=== PATIENT | female | born 1955 | race Caucasian/White ===

== ENCOUNTER → 2019-11-29 10:38 | Outpatient (CLI) | payer MEDICARE, SELFPAY ==
--- NOTE | ~2019-11-29 | MR_ITS ---
EXAMINATION: MR thoracic spine wo con EXAM DATE: 11/29/2019 11:19 INDICATION: Left leg weakness. Right arm burning. Thoracic myelopathy. TECHNIQUE: Multi-sequential, multiplanar MR images of the thoracic spine were obtained without contra st. Sagittal T1, T2, T2 fat saturation, axial T2 weighted images reviewed. There is no prior study for comparison. FINDINGS: There are scattered focal signal abnormalities consistent with hemangiomata, otherwise with out focal suspicious marrow signal abnormalities. There is cervical fusion hardware. No scoliosis. Mi ld mid thoracic disc disease. The vertebral body and disc heights are otherwise well maintained. The vertebral bodies are aligned in the AP dimension. Thoracic central canal and neural foramen are widel y patent. Paraspinal soft tissue is unremarkable. Mild thoracic facet arthropathy. The spinal cord si gnal intensity and intrinsic morphology is normal. IMPRESSION: Mild thoracic spondylosis. Reviewed, dictated and finalized at location A. DATION MANAGER IMPRESSION: Mild thoracic spondylosis.
== END ==
PROVIDERS: PCP Internal Medicine
DX: R29.898 Other symptoms and signs involving the musculoskeletal system (principal); M47.14 Other spondylosis with myelopathy, thoracic region
CPT/HCPCS: 72146

== ENCOUNTER → 2020-01-08 12:55 | Outpatient (CLI) | payer MEDICARE, SELFPAY ==
--- NOTE | ~2020-01-08 | MR_ITS ---
EXAMINATION: MR brain/brain stem wo/w con EXAM DATE: 01/08/2020 13:59 INDICATION: Multiple sclerosis. Left leg weakness, paresthesia. TECHNIQUE: Magnetic resonance imaging (MRI) of the brain/brain stem obtained without contrast. Sagit melita T1, axial diffusion, gradient echo (T2*), T1, T2, FLAIR sequences obtained. Patient was then inj ected with 14 cc intravenous Multihance contrast. Axial and coronal postcontrast T1 weighted sequence s obtained. Comparison is made to prior examination from 06/07/2005. FINDINGS: Again there are multiple periventricular, subcortical T2/FLAIR signal hyperintensities, wit h mild interval progression compared to previous examination, some involving the margins of the corpu s callosum consistent with provided diagnosis of multiple sclerosis. No enhancing lesions to suggest active disease. There has been development of mild microangiopathy, the more confluent hyperintensity along the ventricles. No posterior fossa signal abnormalities. There are no areas of restricted diffusion to suggest acute infarction. There is no acute hemorrhage seen on the T2*, a hemosiderin sensitive sequence. No intraparenchymal brain mass. The ventricles a re normal in size. There are no extra-axial collections. Flow voids are seen in the cerebral arteri es on the T2-weighted sequences consistent with their expected patency. The orbits are unremarkable. Soft tissue is unremarkable. There are no areas of abnormal enhancement on the postcontrast image s. IMPRESSION: Mild interval increase in scattered white matter lesions also involving corpus callosum, consistent with multiple sclerosis. No enhancing, active plaques. Reviewed, dictated and finalized at location A. IMPRESSION: Mild interval increase in scattered white matter lesions also invol ving corpus callosum, consistent with multiple sclerosis. No enhancing, active plaques.
[2020-01-08 13:26] LABS: Estimated Glomerular Filt Rate > 60
== END ==
DX: G35 Multiple sclerosis (principal)
CPT/HCPCS: 36415; 70553; A9577

== ENCOUNTER 2021-04-23 16:36 | Outpatient (CLI) | payer MEDICARE, SELFPAY ==
--- NOTE | ~2021-04-23 | MM_ITS ---
EXAMINATION: MM screening nereyda BI w eda HISTORY: Screening TECHNIQUE: Craniocaudal and mediolateral oblique 3-D tomosynthesis images were obtained and synthetic 2-D images were generated. CAD analysis was submitted and interpreted. COMPARISON: Comparison to multiple prior studies sequentially, with oldest reviewed study dated 02/2013. BREAST PARENCHYMAL COMPOSITION: There are scattered areas of fibroglandular density. FINDINGS: The left breast is stable without evidence for malignancy. No other asymmetries in the lowe r inner quadrant of the right breast. IMPRESSION: 1. Developing right breast asymmetries. 2. Additional spot compression and mediolateral views with possible follow-up breast ultrasound recom mended. BI-RADS Category 0: Incomplete: Needs additional imaging evaluation. Reviewed, dictated and finalized at location A. IMPRESSION: 1. Developing right breast asymmetries. 2. Additional spot compression and mediolateral views with possible follow-up b reast ultrasound recommended. BI-RADS Category 0: Incomplete: Needs additional imaging evaluation.
== END 2021-04-23 16:37 | disposition home or self-care (01) ==
LOC: ANHIMG 16:40
PROVIDERS: PCP Internal Medicine; Visit Provider Internal Medicine
DX: Z12.31 Encounter for screening mammogram for malignant neoplasm of breast (principal); R92.8 Other abnormal and inconclusive findings on diagnostic imaging of breast
CPT/HCPCS: 77063; 77067

== ENCOUNTER 2021-04-29 10:28 | Outpatient (CLI) | payer MEDICARE, SELFPAY ==
--- NOTE | ~2021-04-29 | CT_ITS ---
EXAMINATION: CT abdomen pelvis w con DATE: 04/29/2021 11:24 INDICATION: Constipation for 3 months. TECHNIQUE: Computed tomography (CT) of the abdomen and pelvis was performed with 100 cc Omnipaque 350 intravenous contrast. The dose-length product was 805.81 mGy-cm. Automated exposure control and iter ative reconstruction technique were employed. COMPARISON: CT dated 06/10/2005 FINDINGS: Bibasilar atelectasis. Heart size normal. No significant pleural or pericardial effusion. S tatus post cholecystectomy. There is a 2.5 cm cyst of the spleen. The pancreas, adrenal glands and ri ght kidney are unremarkable. There is a punctate 3 mm nonobstructing left renal stone. There is a sma ll fat-containing umbilical hernia. Nonobstructive bowel gas pattern. There is diffuse atherosclerosi s of the aorta without aneurysm. Status post hysterectomy. Moderate lumbar spondylosis. There is oste oarthritis of the hips. No focal lytic or blastic lesions. No free air or free fluid. IMPRESSION: 1. No acute abdominal abnormality. 2: Nonobstructing left nephrolithiasis. 3: Splenic cyst measuring 2.5 cm maximum axial dimension, likely developmental or posttraumatic. Reviewed, dictated and finalized at location A.
[2021-04-29 11:24] LABS: Estimated Glomerular Filt Rate > 60
== END 2021-04-29 10:29 | disposition home or self-care (01) ==
PROVIDERS: PCP Internal Medicine; Visit Provider Physician Assistant
DX: K59.00 Constipation, unspecified (principal); N20.0 Calculus of kidney; D73.4 Cyst of spleen
CPT/HCPCS: 74177; Q9967

== ENCOUNTER 2021-05-20 11:33 | Outpatient (CLI) | payer MEDICARE, SELFPAY ==
--- NOTE | ~2021-05-20 | MMUS_ITS ---
EXAMINATION: MM diagnostic nereyda RT w eda, US breast RT complete HISTORY: Developing right breast mammographic asymmetries reported on 04/23/2021 bilateral digital scre ening mammogram TECHNIQUE: Additional 3-D tomosynthesis images of the right breast were performed and synthetic 2-D i mages were generated. CAD analysis was submitted and interpreted. High resolution complete right ranjit st ultrasound was performed. COMPARISON: 04/23/2021 bilateral digital screening mammogram FINDINGS: MAMMOGRAPHIC FINDINGS: There is mildly nodular appearing fibroglandular stroma. Up to approximately 4 mm circumscribed low-density opacities are identified (craniocaudal Tomosynthes is spot image 25/68). Complete right breast ultrasound examination was performed for correlation. Otherwise no suspicious mass or architectural distortion or any malignant calcification, skin thicken ing or retraction is evident. ULTRASOUND: 2:00 3 cm from nipple: 6.6 x 2.9 x 4.8 mm sonolucency consistent with simple cyst 11:00 2 cm from nipple: Parallel circumscribed 1.3 x 4.5 mm cyst No suspicious mass or shadowing is detected. IMPRESSION: 1. No mammographic evidence of likely 2. Routine annual mammographic screening is recommended BI-RADS Category 2: Benign finding(s). Reviewed, dictated and finalized at location A. IMPRESSION: 1. No mammographic evidence of likely 2. Routine annual mammographic screening is recommended BI-RADS Category 2: Benign finding(s).
== END 2021-05-20 11:34 | disposition home or self-care (01) ==
LOC: ANHIMG 11:34
PROVIDERS: PCP Internal Medicine; Visit Provider Internal Medicine
DX: R92.8 Other abnormal and inconclusive findings on diagnostic imaging of breast (principal)
CPT/HCPCS: 76641; 77061; 77065; G0279

== ENCOUNTER 2021-05-25 02:02 | Day surgery (SDC) | payer MEDICARE, SELFPAY ==
[2021-05-07 14:30] VITALS: BMI 29.2
[2021-05-25 07:42] VITALS: BP 142/69; PULSE 89; RESP 18; TEMP 36.2; O2SAT 97
[2021-05-25] MEDS: LACTATED RINGERS 1,000 ML 150 ML IV CONT (07:46)
--- NOTE | 2021-05-25 07:49 | WPDANESEPPF ---
Anes - Initial Pre Proc Eval Procedure: Operation Date: 05/25/21 08:45 Proposed Procedures p Colonoscopy - Tucker Campa MD Date/Time: 05/25/21 07:49 Surgeon: Tucker Campa MD Pre Op Diagnosis: change in bowel habits Patient Data Age: 65 Gender: F Height: 1.68 m Weight: 82.7 kg Last Vital Signs Temp 36.2 C L 05/25/21 07:42 Pulse 89 05/25/21 07:42 Resp 18 05/25/21 07:42 BP 142/69 H 05/25/21 07:42 Pulse Ox 97 05/25/21 07:42 Allergies Allergy/AdvReac Type Severity Reaction Status Date / Time codeine Allergy Severe breathing Verified 05/25/21 07:40 problems Influenza Virus Vaccines Allergy Severe breathing Verified 05/25/21 07:40 problems morphine Allergy Severe slowing Verified 05/25/21 07:40 organs down Penicillins Allergy Severe breathing Verified 05/25/21 07:40 difficulty, rash Home Medications Medication Instructions Recorded Confirmed Type acetaminophen 325 mg tablet 325 mg PO Q4H PRN tablet 08/27/19 05/07/21 History cyanocobalamin (vitamin B-12) 1,000 mcg PO DAILY 08/27/19 05/07/21 History 1,000 mcg tablet citalopram 10 mg tablet 10 mg PO DAILY #30 tablet 01/13/20 05/07/21 Rx cholecalciferol (vitamin D3) 125 125 mcg PO DAILY 01/30/20 05/07/21 History mcg (5,000 unit) capsule gabapentin 100 mg capsule 200 mg PO BID 05/14/20 05/07/21 History diroximel fumarate 231 mg 231 mg PO BID 09/26/20 05/07/21 History capsule,delayed release lorazepam 1 mg tablet 1 mg PO TID PRN #60 tablet 03/20/21 05/07/21 Rx levothyroxine 100 mcg tablet 100 mcg PO DAILY #90 tablet 04/06/21 05/07/21 Rx fluticasone propionate 50 2 spray NASAL DAILY PRN #36.4 ml 04/19/21 05/07/21 Rx mcg/actuation nasal spray,suspension docusate sodium 100 mg capsule 100 mg PO DAILY 04/21/21 05/07/21 History gabapentin 300 mg PO DAILY 05/07/21 05/07/21 History Patient hx anesthesia problems: none Family hx anesthesia problems: none PMFSH Family History Family History Father No family history of malignant neoplasm Carcinoma of colon Social History Social History Smoking packs per day: 0.5 Smoking cigarettes per day: 10.0 Smoking status: Current every day smoker Tobacco type: cigarettes Second hand tobacco smoke exposure: No Alcohol intake: current Substance use: never Substance use type: does not use Living arrangements: alone Spiritual care concerns: No Anes - Eval Final PreProcedure Day of Procedure 05/25/21 07:49 Patient weight: overweight Heart: regular rate and rhythm Lungs: clear to auscultation Airway: Mallampati scale class II Neurological: alert and oriented Last oral intake: >/= 8 hours ASA classification: III Emergent: no Anesthetic plan: proceed Anesthesia type and monitoring: general GIVS and standard monitoring Informed Consent: The patient's anesthetic plan and its attendant risks and benefits were discussed with the patient/family/POA. Questions were solicited and answers provided to the satisfaction of the patient/family/POA.
--- NOTE | 2021-05-25 08:33 | WPDGICN ---
Assessment and Plan Assessment and plan (1) History of multiple sclerosis: Code(s): Z86.69 - Personal history of other diseases of the nervous system and sense organs Status: Acute (2) Encounter for diagnostic colonoscopy due to change in bowel habits: Code(s): R19.4 - Change in bowel habit Status: Acute Assessment and Plan: Patient had change in bowel habits for this reason colonoscopy recommended will be performed. (3) Constipation: Code(s): K59.00 - Constipation, unspecified Status: Acute Assessment and Plan: Because of constipation would recommend Metamucil be taken daily. Milk of magnesia or MiraLax is suggested if no bowel movement after 2-3 days. Colonoscopy will be performed this report follow separately. GI Consult Note Consult date/time: 05/25/21 08:33 HPI: Arlene Petersen is a 65 year old female Presents because of constipation. Patient has change in bowel habits since the last 5 months. She states she has become quite constipated. She has a history of multiple sclerosis. She now requires laxatives to have a bowel movement. She reports poor bowel habits with stool softeners. She takes milk a magnesia which caused her to have stool. She complains of vague left lower quadrant burning that improves after a bowel movement. Family history is noncontributory. Recent CT scan was unremarkable aside from a splenic cyst. Review of Systems Review of Systems: All systems reviewed & are unremarkable except as noted in HPI and below PMFSH Family History Family History Father No family history of malignant neoplasm Carcinoma of colon Social History Social History Smoking packs per day: 0.5 Smoking cigarettes per day: 10.0 Smoking status: Current every day smoker Tobacco type: cigarettes Second hand tobacco smoke exposure: No Alcohol intake: current Substance use: never Substance use type: does not use Living arrangements: alone Spiritual care concerns: No Meds Home Medications and Allergies Home Medications Medication Instructions Recorded Confirmed Type acetaminophen 325 mg tablet 325 mg PO Q4H PRN tablet 08/27/19 05/07/21 History cyanocobalamin (vitamin B-12) 1,000 mcg PO DAILY 08/27/19 05/07/21 History 1,000 mcg tablet citalopram 10 mg tablet 10 mg PO DAILY #30 tablet 01/13/20 05/07/21 Rx cholecalciferol (vitamin D3) 125 125 mcg PO DAILY 01/30/20 05/07/21 History mcg (5,000 unit) capsule gabapentin 100 mg capsule 200 mg PO BID 05/14/20 05/07/21 History diroximel fumarate 231 mg 231 mg PO BID 09/26/20 05/07/21 History capsule,delayed release lorazepam 1 mg tablet 1 mg PO TID PRN #60 tablet 03/20/21 05/07/21 Rx levothyroxine 100 mcg tablet 100 mcg PO DAILY #90 tablet 04/06/21 05/07/21 Rx fluticasone propionate 50 2 spray NASAL DAILY PRN #36.4 ml 04/19/21 05/07/21 Rx mcg/actuation nasal spray,suspension docusate sodium 100 mg capsule 100 mg PO DAILY 04/21/21 05/07/21 History gabapentin 300 mg PO DAILY 05/07/21 05/07/21 History Allergies Allergy/AdvReac Type Severity Reaction Status Date / Time codeine Allergy Severe breathing Verified 05/25/21 07:40 problems Influenza Virus Vaccines Allergy Severe breathing Verified 05/25/21 07:40 problems morphine Allergy Severe slowing Verified 05/25/21 07:40 organs down Penicillins Allergy Severe breathing Verified 05/25/21 07:40 difficulty, rash Vital Signs Vital Signs - 24 hr 05/25/21 07:42 Temperature 97.2 F L Pulse Rate 89 Respiratory Rate 18 Blood Pressure 142/69 H Pulse Oximetry 97 Exam Narrative: Physical exam reveals patient to be alert. Vital signs stable. HEENT exam is unremarkable. Patient is anicteric. Lungs are clear to auscultation and percussion. Heart is without murmur or extra sounds. Abdominal exam
[2021-05-25 09:02] VITALS: BP 127/78; PULSE 69; RESP 24; O2SAT 98
[2021-05-25 09:12] VITALS: BP 154/96; PULSE 70; RESP 26; O2SAT 98
[2021-05-25 09:22] VITALS: BP 148/81; PULSE 69; RESP 23; O2SAT 99
== END 2021-05-25 09:33 | disposition home or self-care (01) ==
PROVIDERS: PCP Internal Medicine; Visit Provider Internal Medicine Gastroenterology
PROC: 0DJD8ZZ Inspection of Lower Intestinal Tract, Via Natural or Artificial Opening Endoscopic (ICD-10-PCS; CPT 45378; principal; 2021-05-25 08:45)
DX: K59.00 Constipation, unspecified (principal); K62.1 Rectal polyp; K64.8 Other hemorrhoids; G35 Multiple sclerosis; F17.210 Nicotine dependence, cigarettes, uncomplicated
CPT/HCPCS: 45385; 88305; J2704; J7120

== ENCOUNTER → 2021-12-08 14:10 | Outpatient (CLI) | payer MEDICARE, SELFPAY ==
--- NOTE | ~2021-12-08 | MR_ITS ---
EXAMINATION: MR brain/brain stem wo con DATE: 12/08/2021 16:09 INDICATION: Multiple sclerosis. TECHNIQUE: Magnetic resonance imaging (MRI) of the brain and brainstem was performed without intraven ous contrast. Sequences included sagittal and axial T1-weighted FLAIR, axial T1-weighted FSE, axial d iffusion-weighted FS EPI, sagittal T2-weighted FLAIR, axial T2*-weighted GRE, axial T2-weighted FLAIR Propeller, and axial T2-weighted Propeller. Apparent diffusion coefficient (ADC) maps were created. COMPARISON: Brain MRI 01/08/2020 FINDINGS: There are greater than 40 total lesions of increased T2-weighted signal intensity in the br ain, some of which are confluent. Of these lesions, many are periventricular, several are juxtacortic al, and none are infratentorial. There is no acute ischemic infarct or intracranial hemorrhage. The v entricles are normal in size. The orbits are normal. The paranasal sinuses are clear. The mastoid air cells are normal. IMPRESSION: 1. Stable moderate cerebral white matter disease, consistent with multiple sclerosis. Reviewed, dictated and finalized at location A. INE MOVER IMPRESSION: 1. Stable moderate cerebral white matter disease, consistent with multiple scle rosis.
--- NOTE | ~2021-12-08 | MR_ITS ---
EXAMINATION: MR cervical spine wo con DATE: 12/08/2021 16:17 INDICATION: Multiple sclerosis. TECHNIQUE: Magnetic resonance imaging (MRI) of the cervical spine was performed without intravenous c ontrast. Sequences included sagittal T2-weighted FSE, sagittal STIR FSE, sagittal T1-weighted FSE, ax ial MERGE, and axial T2-weighted FSE. COMPARISON: Cervical spine MRI 09/10/2019 FINDINGS: There is 7 degrees dextrocurvature of cervicothoracic spine. There are changes of anterior fusion procedure from C5 to C7 with discectomies, interbody bone graft, and anterior plate and screws . Vertebral body heights are normal. There is mildly decreased disc height at C4-C5 pain. There are l east 5 lesions of increased T2-weighted signal intensity in the cervical spinal cord. The following d isc levels are specifically discussed: C2-C3: There is a central extrusion. There is no uncovertebral joint osteoarthritis. There is severe bilateral facet joint osteoarthritis. There is no neural foraminal stenosis. There is mild central ca nal stenosis. C3-C4: The disc does not extend beyond the endplate margin. There is no uncovertebral joint osteoarth ritis. There is severe bilateral facet joint osteoarthritis. There is mild left neural foraminal sten osis. There is no central canal stenosis. C4-C5: The disc does not extend beyond the endplate margin. There is mild right and moderate left unc overtebral joint osteoarthritis. There is moderate right and severe left facet joint osteoarthritis. There is mild right and moderate left neural foraminal stenosis. There is no central canal stenosis. C5-C6: There is mild bilateral uncovertebral joint hypertrophy. There is moderate left facet joint hy pertrophy. There is moderate left neural foraminal stenosis. There is no central canal stenosis. C6-C7: There is mild bilateral uncovertebral joint hypertrophy. There is moderate left facet joint hy pertrophy. There is mild left neural foraminal stenosis. There is no central canal stenosis. C7-T1: The disc does not extend beyond the endplate margin. There is no uncovertebral joint osteoarth ritis. There is severe bilateral facet joint osteoarthritis. There is mild left neural foraminal sten osis. There is no central canal stenosis. IMPRESSION: 1. Multiple spinal cord lesions, stable from 09/10/2019, consistent multiple sclerosis. 2. Anterior fusion procedure from C5 to C7. 3. Moderate cervical spondylosis, stable from 09/10/2019. Reviewed, dictated and finalized at location A. ENSER TESTER IMPRESSION: 1. Multiple spinal cord lesions, stable from 09/10/2019, consistent multiple sc lerosis. 2. Anterior fusion procedure from C5 to C7. 3. Moderate cervical spondylosis, stable from 09/10/2019.
== END ==
PROVIDERS: PCP Internal Medicine; Visit Provider Psychiatry & Neurology Neurology
DX: G35 Multiple sclerosis (principal); M47.892 Other spondylosis, cervical region; Z98.1 Arthrodesis status
CPT/HCPCS: 70551; 72141

== ENCOUNTER 2022-06-29 10:30 | Outpatient (CLI) | payer MEDICARE, SELFPAY ==
[2022-06-29 10:48] LABS: Appearance Urine Clear (Clear); Bilirubin Urine Negative (Negative); Blood Urine 2+ (Negative); Color Urine Yellow (Yellow); Glucose Urine UA Negative (Negative); Ketones Urine Negative (Negative); Leukocyte Esterase Ur Negative LEU/UL (Negative); Nitrate Urine Negative (Negative); Protein Urine Negative (Negative); Specific Grav Ur 1.015 (1.001-1.035); Urobilinogen Urine 0.2 mg/dL (<2.0); pH Urine 6.5 (5.0-9.0)
[2022-06-29 11:19] LABS: Add Urine Microscopic? YES
[2022-06-29 11:20] LABS: Mucus Urine Rare /lpf; Squamous Epithelial Cell Urine Many /hpf (Few); WBC Urine 0-3 /hpf (0-3)
== END 2022-06-29 10:31 | disposition home or self-care (01) ==
PROVIDERS: PCP Internal Medicine; Visit Provider Internal Medicine
DX: R30.0 Dysuria (principal)
CPT/HCPCS: 81001

== ENCOUNTER 2022-06-29 14:22 | Emergency (ER) | payer MEDICARE, SELFPAY ==
--- NOTE | ~2022-06-29 | CT_ITS ---
EXAMINATION: CT abdomen pelvis wo con DATE: 06/29/2022 15:16 INDICATION: Left flank pain, hematuria TECHNIQUE: Computed tomography (CT) of the abdomen and pelvis was performed without intravenous contr ast. The dose-length product (DLP) was 1163.75 mGy-cm. Automated exposure control and iterative recon struction technique were employed. COMPARISON: 04/29/2021 FINDINGS: Minimal dependent atelectasis is present in the lung bases. The heart size is normal. Suben docardial fat deposition in the left ventricular apex could reflect prior myocardial infarction. The gallbladder is surgically absent. A 2.3 cm cyst is noted in the spleen. The liver, pancreas, and adre nal glands are normal. The axis of the right kidney is in the axial plane. There is a 2 mm nonobstruc ting stone of the left kidney upper pole. No stones are identified in the ureters or bladder. There i s no hydronephrosis or hydroureter. Gonadal vein phleboliths are noted. No pathologically enlarged ab dominal or pelvic lymph nodes are identified. There is no free intraperitoneal gas or evidence of bow el obstruction. A moderate volume of colonic stool is present. There is severe lumbar spondylosis at L5-S1. A fat-containing umbilical hernia is noted. IMPRESSION: 1. Nonobstructing left nephrolithiasis. Reviewed, dictated and finalized at location B.
[2022-06-29 14:25] VITALS: BP 154/95; PULSE 87; RESP 16; TEMP 36.7; O2SAT 98
[2022-06-29 14:47] LABS: Basophils Absolute Auto 0.1 K/mm3 (0.0-0.1); Basophils Percent Auto 0.6 % (0.2-1.2); Eosinophils Absolute Auto 0.3 K/mm3 (0-0.3); Eosinophils Percent Auto 3.4 % (0-4.4); Hematocrit 43.7 % (37.0-47.0); Hemoglobin 14.1 g/dL (12.0-15.0); Immature Granulocyte Absolute 0.03 K/mm3 (0.00-0.031); Immature Granulocyte Percent A 0.3 % (0-0.5); Lymphocytes Absolute Auto 1.68 K/mm3 (0.9-3.2); Lymphocytes Percent Auto 17.5 % (18.3-44.2); Mean Corpuscular HGB Conc 32.3 g/dl (32-36); Mean Corpuscular Hemoglobin 30.1 pg (26-34); Mean Corpuscular Volume 93.4 fl (80-100); Mean Platelet Volume 9.5 fl (7.4-10.4); Monocytes Absolute Auto 0.9 K/mm3 (0.1-0.6); Monocytes Percent Auto 9.6 % (2.6-8.5); Neutrophils Absolute Auto 6.6 K/mm3 (1.3-6.7); Neutrophils Percent Auto 68.6 % (45.5-73.1); Platelet Count Result 302 k/mm3 (150-375); Red Blood Count 4.68 M/mm3 (4.2-5.4); Red Cell Distribution Width 14.2 % (11.5-14.5); White Blood Count 9.6 K/mm3 (4.5-10.0)
[2022-06-29 14:56] LABS: Alanine Aminotransferase 16 U/L (6-35); Albumin Level 4.7 g/dL (3.5-5.1); Alkaline Phosphatase 110 U/L (38-126); Anion Gap 16 mmol/L (8-16); Aspartate Amino Transferase 21 U/L (14-36); Bilirubin,Total 0.4 mg/dL (0.2-1.3); Blood Urea Nitrogen 13 mg/dL (7-17); Carbon Dioxide 27 mmol/L (22-30); Chloride 99 mmol/L (98-107); Estimated CRCL calculation 66 ml/min; Estimated Glomerular Filt Rate > 60; Glucose 94 mg/dL (65-110); Potassium 4.3 mmol/L (3.4-5.0); Sodium 142 mmol/L (137-145)
--- NOTE | 2022-06-29 15:13 | ED.GENADULT ---
HPI - General Adult General Chief complaint: Urogenital-Female <Noy Vasquez PA-C - Last Filed: 06/29/22 18:12> Stated complaint: possible kidney stone? hematuria <Noy Vasquez PA-C - Last Filed: 06/29/22 18:12> Time Seen by Provider: 06/29/22 14:52 <Noy Vasquez PA-C - Last Filed: 06/29/22 18:12> History of Present Illness HPI narrative: Patient is a 66-year-old female here for evaluation of left-sided low back pain for the past 3 days. Patient states the pain is intermittent in nature and is severe. She notes it is worse with position changes particularly with bending forward. She saw her primary care doctor this morning who told her that she had blood in her urine and she should come to the ED to rule out a kidney stone. She has had no history of kidney stones in the past but does have a history of recurrent UTI. Denies fevers, chills, chest pain. She reports that she feels somewhat nauseated but has not vomited. No changes to her stools. <Noy Vasquez PA-C - Last Filed: 06/29/22 18:12> Related Data Home medications: Home Medications Medication Instructions Recorded Confirmed acetaminophen 325 mg tablet 325 mg PO Q4H PRN Pain 08/27/19 06/14/22 (Tylenol) cyanocobalamin (vitamin B-12) 1,000 mcg PO DAILY 08/27/19 06/14/22 1,000 mcg tablet (Vitamin B-12) cholecalciferol (vitamin D3) 125 125 mcg PO DAILY 01/30/20 06/14/22 mcg (5,000 unit) capsule gabapentin 100 mg capsule 200 mg PO BID 05/14/20 06/14/22 diroximel fumarate 231 mg 231 mg PO BID 09/26/20 06/14/22 capsule,delayed release (Vumerity) cetirizine 10 mg capsule (Zyrtec) 10 mg PO DAILY PRN 03/23/22 06/14/22 <ARGENTINA Carrington Last Filed: 06/29/22 18:12> Allergies/adverse reactions: Allergies Allergy/AdvReac Type Severity Reaction Status Date / Time codeine Allergy Severe breathing Verified 06/14/22 10:52 problems Influenza Virus Vaccines Allergy Severe breathing Verified 06/14/22 10:52 problems morphine Allergy Severe slowing Verified 06/14/22 10:52 organs down Penicillins Allergy Severe breathing Verified 06/14/22 10:52 difficulty, rash <Noy Vasquez PA-C - Last Filed: 06/29/22 18:12> Review of Systems Review of Systems: Gen: Denies fevers or chills Eyes: Denies eye pain or visual change ENT: Denies congestion Respiratory: Denies shortness of breath or cough CV: Denies chest pain or palpitations GI: Reports nausea. Denies abdominal pain, emesis or diarrhea : reports hematuria. Denies burning, urgency, frequency or hematuria Musculoskeletal: Reports left-sided low back pain. Neuro: Denies numbness, tingling, weakness or focal weakness Skin: Denies rash Except as documented, all other systems reviewed and negative <ARGENTINA Carrington Last Filed: 06/29/22 18:12> [facility] Family History Family History: Family History Father No family history of malignant neoplasm Carcinoma of colon <ARGENTINA Carrington Last Filed: 06/29/22 18:12> Social History Social History: Social History Smoking packs per day: 0.5 Smoking cigarettes per day: 10.0 Smoking status: Current every day smoker Tobacco type: cigarettes Second hand tobacco smoke exposure: No Alcohol intake: current Substance use: never Substance use type: does not use Spiritual care concerns: No <ARGENTINA Carrington Last Filed: 06/29/22 18:12> Exam Narrative: APPEARANCE: Well appearing, no pain in distress, well-nourished. Head: Normocephalic and atraumatic. EYES: PERRLA/EOMI, conjunctivae clear NOSE: No nasal drainage EARS: External ear normal in appearance THROAT: Oropharynx is clear. Mucous membranes are moist. NECK: Supple. No adenopathy, no masses. RESPIRATORY: Airway patent, respirations nonl
[2022-06-29] MEDS: KETOROLAC 15 MG/ML VIAL (*BKC) IV PUSH (15:49)
[2022-06-29] MEDS: ONDANSETRON INJ 4 MG/2 ML VIAL IV PUSH (15:49)
[2022-06-29 17:11] VITALS: BP 134/87; PULSE 78; RESP 16; O2SAT 100
== END 2022-06-29 17:13 | disposition home or self-care (01) ==
PROVIDERS: Emergency Medicine; Emergency Provider Emergency Medicine; PCP Internal Medicine
DX: M54.30 Sciatica, unspecified side (principal); F17.210 Nicotine dependence, cigarettes, uncomplicated
CPT/HCPCS: 36415; 74176; 80053; 81001; 85025; 96374; 96375; 99284; J1885; J2405

== ENCOUNTER 2022-10-11 16:41 | Outpatient (CLI) | payer MEDICARE, SELFPAY ==
--- NOTE | ~2022-10-11 | CT_ITS ---
EXAMINATION: CT lung screening DATE: 10/11/2022 17:03 INDICATION: Personal history of nicotine dependence TECHNIQUE: Computed tomography (CT) of the chest was performed without intravenous contrast. Addition al 3D reconstructions utilizing coronal maximum intensity projection (MIP) were performed. Automated exposure control and iterative reconstruction technique were employed. The dose-length product was 14 1.30 mGy-cm. COMPARISON: None FINDINGS: Mild emphysema. 4 mm right upper lobe nodule on image 35 and 4 mm right middle lobe nodule on image 9 4 2 mm left apical nodule on image 32 no pulmonary edema, pleural effusion or pneumothorax. Heart siz e is normal. No pericardial effusion. Atherosclerotic coronary artery calcification. No pericardial e ffusion. Thoracic aorta is normal in caliber. No pathologically enlarged thoracic lymphadenopathy. Ch olecystectomy clips at the gallbladder fossa. No significant change in an ill-defined approximately 2 .5 cm low-attenuation splenic cyst better appreciated on the post contrast imaging on 04/29/2021. Mild thoracic spondylosis. C5-C7 anterior spinal fusion with anterior plate and screw fixation. IMPRESSION: 1. Lung-RADS category 2: Benign appearance or behavior. Continue annual screening with noncontrast lo w-dose chest CT in 12 months. Reviewed, dictated and finalized at location L. ORATE SALES MANAGER IMPRESSION: 1. Lung-RADS category 2: Benign appearance or behavior. Continue annual screeni ng with noncontrast low-dose chest CT in 12 months.
== END 2022-10-11 16:42 | disposition home or self-care (01) ==
PROVIDERS: PCP Internal Medicine; Visit Provider Internal Medicine
DX: Z12.2 Encounter for screening for malignant neoplasm of respiratory organs (principal); Z87.891 Personal history of nicotine dependence
CPT/HCPCS: 71271

== ENCOUNTER → 2022-11-29 12:48 | Outpatient (CLI) | payer MEDICARE, SELFPAY ==
--- NOTE | ~2022-11-29 | MR_ITS ---
EXAMINATION: MR cervical spine wo/w con DATE: 11/29/2022 13:58 INDICATION: Multiple sclerosis. TECHNIQUE: Magnetic resonance imaging (MRI) of the cervical spine was performed without and with 18 m L MultiHance intravenous contrast. COMPARISON: Cervical spine MRI 12/08/2021 FINDINGS: Bone alignment is normal. Vertebral body heights are normal. There are changes of anterior fusion procedure from C5 to C7 with healed interbody bone graft and anterior plate and screws. There is mildly decreased disc height at C4-C5. There are least 5 lesions of increased T2-weighted signal i ntensity in the cervical spinal cord. There is a lesion of increased T2-weighted signal intensity in the thoracic spinal cord at T4. None of the lesions enhance. The following disc levels are specifical ly discussed: C2-C3: There is a central extrusion. There is no uncovertebral joint osteoarthritis. There is severe bilateral facet joint osteoarthritis. There is no neural foraminal stenosis. There is mild central ca nal stenosis. C3-C4: The disc does not extend beyond the endplate margin. There is no uncovertebral joint osteoarth ritis. There is severe bilateral facet joint osteoarthritis. There is mild left neural foraminal sten osis. There is no central canal stenosis. C4-C5: The disc does not extend beyond the endplate margin. There is mild right and moderate left unc overtebral joint osteoarthritis. There is moderate right and severe left facet joint osteoarthritis. There is mild right and moderate left neural foraminal stenosis. There is no central canal stenosis. C5-C6: There is mild bilateral uncovertebral joint hypertrophy. There is moderate left facet joint hy pertrophy. There is moderate left neural foraminal stenosis. There is no central canal stenosis. C6-C7: There is mild bilateral uncovertebral joint hypertrophy. There is moderate left facet joint hy pertrophy. There is mild left neural foraminal stenosis. There is no central canal stenosis. C7-T1: The disc does not extend beyond the endplate margin. There is no uncovertebral joint osteoarth ritis. There is severe bilateral facet joint osteoarthritis. There is mild left neural foraminal sten osis. There is no central canal stenosis. IMPRESSION: 1. Spinal cord lesions, stable from 12/08/2021, consistent with multiple sclerosis. 2. Anterior fusion procedure from C5 to C7. 3. Stable moderate cervical spondylosis. Reviewed, dictated and finalized at location A. PLACER IMPRESSION: 1. Spinal cord lesions, stable from 12/08/2021, consistent with multiple scleros is. 2. Anterior fusion procedure from C5 to C7. 3. Stable moderate cervical spondylosis.
--- NOTE | ~2022-11-29 | MR_ITS ---
EXAMINATION: MR brain/brain stem wo/w con DATE: 11/29/2022 13:58 INDICATION: Multiple sclerosis. TECHNIQUE: Magnetic resonance imaging (MRI) of the brain and brainstem was performed without and with 18 mL MultiHance intravenous contrast. COMPARISON: Brain MRI 12/08/2021 FINDINGS: There are greater than 40 total lesions of increased T2-weighted signal intensity in the b rain, some of which are confluent. Of these lesions, many are periventricular, several are juxtacorti darell, and none are infratentorial. There is no acute ischemic infarct or intracranial hemorrhage. The ventricles are normal in size. The orbits are normal. The paranasal sinuses are clear. The mastoid ai r cells are normal. IMPRESSION: 1. Stable moderate cerebral white matter disease, consistent with multiple sclerosis. Reviewed, dictated and finalized at location A. Y TELLER IMPRESSION: 1. Stable moderate cerebral white matter disease, consistent with multiple scle rosis.
== END ==
PROVIDERS: PCP Internal Medicine; Visit Provider Psychiatry & Neurology Neurology
DX: G35 Multiple sclerosis (principal); M47.812 Spondylosis without myelopathy or radiculopathy, cervical region; Z98.1 Arthrodesis status
CPT/HCPCS: 70553; 72156; A9577

== ENCOUNTER 2022-12-01 08:09 | Outpatient (CLI) | payer MEDICARE, SELFPAY ==
--- NOTE | 2022-12-21 17:25 | WPDSLEEPSTUD ---
Sleep Study Date of Study: 12/01/22 Ordering Provider: Yoni Ponce DO Interpreting Physician: Marce Damon MD Sleep Study Type: Polysomnogram Height: 1.68 m Weight: 92.079 kg Body Mass Index: 32.8 Neck Circumference (inches): 17 [place]: 9 Reason for Sleep Study Chronic fatigue, snoring, wakes up feeling tired, sleepy in the day. Sleep History Arlene Petersen is a 66-year-old woman with multiple medical diagnoses. Her sleep is been poor for over a year. There is a family history of sleep issues with her brother having a diagnosis of sleep apnea. She does not awake from sleep feeling short of breath. she occasionally awakens at night with heartburn, belching or coughing. She occasionally snores but never loudly enough that others complain about it. She constantly has trouble sleeping with a cold. She occasionally wakes up gasping for breath at night. She does not have breathing problems at night reported to her by others. she constantly sweats excessively at night. She does not notice her heart pounding or beating irregularly at night. She frequently falls asleep during the day, never involuntarily or while driving. She does not fall asleep during physical effort. She occasionally has loss of muscle tone with strong emotion. She does not have daytime difficulties due to excessive sleepiness. She does not feel paralyzed on waking or falling asleep. She rarely has vivid dreamlike scenes upon awakening or falling asleep. She does not feel afraid to go to sleep. She occasionally has nightmares. She does not have dream recall. She occasionally has racing thoughts. She does not feel sad or depressed. She frequently has anxiety. She frequently has muscular tension and notices parts of her body jerking. She constantly kicks at night and constantly has crawling and aching feelings in her legs. She frequently has leg pain during the day. She does not have morning jaw pain and does not grind her teeth during sleep. She frequently is bothered by pain during the day and awakened by pain at night. She constantly wakes up feeling stiff in the morning with sore achy muscles and pain in the neck and spine. She has fatigue, headaches, insomnia and she takes antacids regularly. In her sleep survey she notes that sometimes when she initially falls asleep it sounds like a tight wire is popping. The patient has significant medical comorbidities including hypertension, thyroid disease with a history of a thyroidectomy, neuropathy, GERD, depression, sinus problems and multiple sclerosis. The normal bedtime is 10:00 p.m., taking an hour to fall asleep, typically waking 2-3 times during the night to either go to the bathroom or take a short walk around. Sometimes, she returns to sleep immediately, nad at other times, this can take 30 minutes. she wakes at 5:00 a.m.. Her weekend schedule is the same. She has a puppy sleeping in her bed. She sometimes takes naps in the afternoon or evening. A short nap may be refreshing. She is drowsy for 3 hours after waking. She feels better in the afternoon compared to other times of day. She reports a 90 lb weight gain in the last year, has Graves disease. Habits: Tobacco half pack per day. Caffeine including coffee and tea daily. No alcohol or recreational substances. [facility] Past Medical History Medical History (Updated 12/21/22 @ 18:41 by Marce Damon MD) Depression Hypothyroidism Multiple sclerosis Pure hypercholesterolemia, unspecified Family History Family History Father No family history of malignant neoplasm Carcinoma of colon Social History Social History (Updated 09/28/22 @ 09:17 by Venessa Roldan CMA) Smoking packs per day: 0.5 Smoking cigarettes per day: 10.0 Smoking status: Current every day smoker Tobacco type: cigarettes Second hand tobacco smoke exposure: No Alcohol intake: current [facility]
[2022-12-21 17:28] VITALS: BMI 32.8
== END 2022-12-02 06:46 | disposition home or self-care (01) ==
LOC: ANHCSM 08:10
PROVIDERS: PCP Internal Medicine; Visit Provider Internal Medicine
DX: G47.33 Obstructive sleep apnea (adult) (pediatric) (principal)
CPT/HCPCS: 95810

== ENCOUNTER 2022-12-18 19:54 | Emergency (ER) | payer MEDICARE, SELFPAY ==
--- NOTE | ~2022-12-18 | XR_ITS ---
EXAM: XR finger 4th RT min 2V DATE: 12/18/2022 20:58 HISTORY: pain x 3 wks, BUMP ON ANTERIOR PROXIMAL 4TH DIGIT . COMPARISON: None available. FINDINGS: Decreased mineralization. No fracture or dislocation. No lytic or blastic lesion. Scattere d degenerative change. No erosion or periosteal change. Nodular soft tissue swelling along the proxim al and anterior aspect of the fourth digit. IMPRESSION: No acute osseous finding in the fourth digit. Localized soft tissue swelling proximally i n the fourth digit. Reviewed, dictated and finalized at location K. R BUNDLER IMPRESSION: No acute osseous finding in the fourth digit. Localized soft tissue swelling proximally in the fourth digit.
[2022-12-18 20:00] VITALS: BP 133/68; PULSE 99; RESP 16; TEMP 36.7; O2SAT 97
--- NOTE | 2022-12-18 21:42 | ED.EXTPRO ---
HPI - Extremity Problem General Chief complaint: Extremity Problem,Nontraumatic Stated complaint: pain, swelling to right 4th finger Time Seen by Provider: 12/18/22 20:34 History of Present Illness HPI Narrative: Patient is a 66-year-old female here for evaluation of pain to the palmar aspect of her fourth digit over the past several weeks. Patient states that she pinched the skin in the fold of her glasses prior to symptom onset. Since then she has had pain and the past several days she has developed a small blood blister on that hand. Has attempted Tylenol without relief. Denies any difficulty moving the fingers. Related Data Home Medications Medication Instructions Recorded Confirmed cyanocobalamin (vitamin B-12) 1,000 mcg PO DAILY 08/27/19 09/28/22 1,000 mcg tablet (Vitamin B-12) cholecalciferol (vitamin D3) 125 125 mcg PO DAILY 01/30/20 09/28/22 mcg (5,000 unit) capsule gabapentin 100 mg capsule 200 mg PO BID 05/14/20 09/28/22 diroximel fumarate 231 mg 231 mg PO BID 09/26/20 09/28/22 capsule,delayed release (Vumerity) cetirizine 10 mg capsule (Zyrtec) 10 mg PO DAILY PRN 03/23/22 09/28/22 Allergies Allergy/AdvReac Type Severity Reaction Status Date / Time codeine Allergy Severe breathing Verified 12/18/22 20:02 problems Influenza Virus Vaccines Allergy Severe breathing Verified 12/18/22 20:02 problems morphine Allergy Severe slowing Verified 12/18/22 20:02 organs down Penicillins Allergy Severe breathing Verified 12/18/22 20:02 difficulty, rash Review of Systems Review of Systems: Gen: Denies fevers or chills Eyes: Denies eye pain or visual change ENT: Denies congestion Respiratory: Denies shortness of breath or cough CV: Denies chest pain or palpitations GI: Denies abdominal pain nausea, emesis or diarrhea : denies burning, urgency, frequency or hematuria Musculoskeletal: Reports blood blister to finger Neuro: Denies numbness, tingling, weakness or focal weakness Skin: Denies rash Except as documented, all other systems reviewed and negative PMFSH Past Medical History Medical History Pure hypercholesterolemia, unspecified Family History Family History Father No family history of malignant neoplasm Carcinoma of colon Social History Social History (Updated 09/28/22 @ 09:17 by Venessa Roldan CMA) Smoking packs per day: 0.5 Smoking cigarettes per day: 10.0 Smoking status: Current every day smoker Tobacco type: cigarettes Second hand tobacco smoke exposure: No Alcohol intake: current Substance use: never Substance use type: does not use Lack of Transportation: No Lack of Food: Never True Current Housing: I Have Housing Concerned About Future Housing: No Difficulty Paying Gas/Electric Bills: No Difficulty Paying for Meds: No Currently Unemployed: No Education: High School Diploma/GED Difficulty w/ Childcare or Family Care: No Living arrangements: alone Spiritual care concerns: No Exam Narrative: Gen: Alert, oriented, no acute distress Eyes: EOMI, no icterus Pulm: Respirations even and unlabored, symmetric thorax expansion, no audible stridor or visible cyanosis CV: Regular rate per telemetry GI: No distension, no voluntary/involuntary guarding Neuro: AOx4, moves all extremities without apparent difficulty or weakness, follows commands MSK: Full range of motion in the fingers without pain. Skin: Patient has a small pea-sized blood-filled blister to the palmar aspect of her right fourth finger just proximal to the PIP. Nontender to palpation. Psych: Normal mood/affect, insight/judgement good, adequate fund of knowledge, recent/remote memory intact Course Vital Signs Vital signs: Vital Signs Temperature 98.0 F 12/18/22 20:00 Pulse Rate 99 12/18/22 20:00 Respiratory Rate 16 12/18/22 20:00 Blood Pres
== END 2022-12-18 22:09 | disposition home or self-care (01) ==
PROVIDERS: Emergency Provider Physician Assistant; PCP Internal Medicine
DX: S60.424A Blister (nonthermal) of right ring finger, initial encounter (principal); E78.00 Pure hypercholesterolemia, unspecified; F17.210 Nicotine dependence, cigarettes, uncomplicated; W23.0XXA Caught, crushed, jammed, or pinched between moving objects, initial encounter
CPT/HCPCS: 73140; 99283

== ENCOUNTER 2023-01-06 12:36 | Outpatient (CLI) | payer MEDICARE, SELFPAY ==
--- NOTE | 2023-01-06 14:21 | WPDPFTINT ---
PFT Procedure Performed PFT Procedure Performed Spirometry with Pre/Post Bronchodilator Plethysmography (Lung Vol) Diffusing Cap (DLCO) Flow Vol Loop PFT Interpretation This is a pulmonary function test with pre and post-bronchodilator spirometry, plethysmography and diffusing capacity. The test was performed and results interpreted in accordance with the 2019 and 2005 ATS/ERS Task Force guidelines respectively using the Global Lung Function Initiative-2012 reference equations. Patient demonstrated good effort and cooperation. Reproducibility criteria were met. The quality of the pre bronchodilator spirometry maneuver was Grade A and post bronchodilator spirometry maneuver was Grade A. Findings: Spirometry: The contour the inspiratory and expiratory flow tracing are normal. The pre bronchodilator FVC is 2.93 L, 94% predicted. The pre bronchodilator FEV1 is 1.99 L, 83% predicted. The pre bronchodilator FVC is 68%. The post bronchodilator FVC is 3.10 L, representing a 6% increase. The post bronchodilator FEV1 is 2.13 L, representing a 7% increase. The post bronchodilator FEV1: FVC ratio 68%. Plethysmography: The total lung capacity is 5.17 L, 96% predicted. The functional residual capacity is 3.22 L, 105% predicted. The residual volume is 2.25 L, 99% predicted. Diffusing capacity: The diffusing capacity unadjusted for hemoglobin and carboxyhemoglobin is 15.4, 72% predicted. The diffusing capacity adjusted for alveolar volume is 3.43, 81% predicted. Impression: The spirometry is normal without evidence of an obstructive abnormality. There is no significant improvement after inhaling a single dose of albuterol. The lung volumes are normal. The diffusing capacity is normal. There are no prior studies for comparison
== END 2023-01-06 12:37 | disposition home or self-care (01) ==
LOC: ANHPFT 12:37
PROVIDERS: PCP Internal Medicine; Visit Provider Internal Medicine
DX: G47.34 Idiopathic sleep related nonobstructive alveolar hypoventilation (principal); G47.10 Hypersomnia, unspecified
CPT/HCPCS: 94060; 94726; 94729

== ENCOUNTER → 2023-06-01 15:58 | Outpatient (CLI) | payer MEDICARE, SELFPAY ==
--- NOTE | ~2023-06-01 | MM_ITS ---
EXAMINATION: MM screening [facility] BI w eda HISTORY: Screening mammogram TECHNIQUE: Craniocaudal and mediolateral oblique 3-D tomosynthesis images were obtained and synthetic 2-D images were generated. CAD analysis was submitted and interpreted. COMPARISON: 05/20/2021, 04/23/2021, 01/05/2018, 06/14/2015 BREAST PARENCHYMAL COMPOSITION: There are scattered areas of fibroglandular density. FINDINGS: Chronic and stable architectural distortion in the subareolar aspect of the left breast lik bonnie relates to prior excisional biopsy. No suspicious mass, calcification, or architectural distortio n are identified in either breast to suggest malignancy. There has been no suspicious interval change . IMPRESSION: 1. No mammographic evidence of malignancy. 2. Recommend routine screening mammography in one year. BI-RADS Category 2: Benign finding(s). Reviewed, dictated and finalized at location A.
== END ==
PROVIDERS: PCP Internal Medicine; Visit Provider Internal Medicine
DX: Z12.31 Encounter for screening mammogram for malignant neoplasm of breast (principal)
CPT/HCPCS: 77063; 77067

== ENCOUNTER → 2023-11-16 08:54 | Outpatient (CLI) | payer MEDICARE, SELFPAY ==
--- NOTE | ~2023-11-16 | MR_ITS ---
MRI of the brain Clinical History: Multiple sclerosis Technique: Axial and sagittal T1-weighted images were acquired. These were followed by axial T2-weigh oscar, diffusion weighted, gradient, and FLAIR images. Following intravenous administration of 18 cc Mu ltiHance gadolinium, T1-weighted fat-sat imaging was performed in the axial, coronal, and sagittal pl anes. COMPARISON: 11/29/2022 Findings: There are numerous bilateral lesions throughout the periventricular white matter bilaterall y. Findings overall are similar to prior exam, with possible new/increase lesion in the right frontal lobe region. No active/enhancing plaque identified. No acute infarct seen. No intracranial hemorrhag e. Ventricles and subarachnoid spaces are unremarkable. Orbits are unremarkable. Paranasal sinuses and m astoid air cells are clear. Major intracranial flow voids are intact. Sagittal midline structures are intact. No abnormal postcontrast enhancement identified. IMPRESSION: Numerous white matter lesions are consistent with multiple sclerosis, with possible new/increased les ion at the right frontal lobe region. No active/enhancing plaque identified. Reviewed, dictated and finalized at location M. STANT INVENTORY MANAGER IMPRESSION: Numerous white matter lesions are consistent with multiple sclerosis, with poss ible new/increased lesion at the right frontal lobe region. No active/enhancing plaque identified.
--- NOTE | ~2023-11-16 | MR_ITS ---
EXAMINATION: MR cervical spine wo/w con DATE: 11/16/2023 10:16 INDICATION: Multiple sclerosis. TECHNIQUE: Magnetic resonance imaging (MRI) of the cervical spine was performed without and with 18 m L MultiHance intravenous contrast. COMPARISON: Cervical spine MRI 11/29/2022 FINDINGS: Bone alignment is normal. Vertebral body heights are normal. There are changes of anterior fusion procedure from C5 to C7 with healed interbody bone graft and anterior plate and screws. There is mildly decreased disc height at C4-C5. There are least 5 lesions of increased T2-weighted signal i ntensity in the cervical spinal cord. There is a lesion of increased T2-weighted signal intensity in the thoracic spinal cord at T4. None of the lesions enhance. The following disc levels are specifical ly discussed: C2-C3: There is a central extrusion. There is no uncovertebral joint osteoarthritis. There is severe bilateral facet joint osteoarthritis. There is no neural foraminal stenosis. There is mild central ca nal stenosis. C3-C4: The disc does not extend beyond the endplate margin. There is no uncovertebral joint osteoarth ritis. There is severe bilateral facet joint osteoarthritis. There is mild left neural foraminal sten osis. There is no central canal stenosis. C4-C5: The disc does not extend beyond the endplate margin. There is mild right and moderate left unc overtebral joint osteoarthritis. There is moderate right and severe left facet joint osteoarthritis. There is mild right and moderate left neural foraminal stenosis. There is no central canal stenosis. C5-C6: There is mild bilateral uncovertebral joint hypertrophy. There is moderate left facet joint hy pertrophy. There is moderate left neural foraminal stenosis. There is no central canal stenosis. C6-C7: There is mild bilateral uncovertebral joint hypertrophy. There is moderate left facet joint hy pertrophy. There is mild left neural foraminal stenosis. There is no central canal stenosis. C7-T1: The disc does not extend beyond the endplate margin. There is no uncovertebral joint osteoarth ritis. There is severe bilateral facet joint osteoarthritis. There is mild left neural foraminal sten osis. There is no central canal stenosis. IMPRESSION: 1. Spinal cord lesions, stable from 11/29/2022, consistent with multiple sclerosis. 2. Anterior fusion procedure from C5 to C7. 3. Stable moderate cervical spondylosis. Reviewed, dictated and finalized at location E. RUCTIONAL TECHNOLOGY SPECIALIST IMPRESSION: 1. Spinal cord lesions, stable from 11/29/2022, consistent with multiple sclerosi s. 2. Anterior fusion procedure from C5 to C7. 3. Stable moderate cervical spondylosis.
== END ==
PROVIDERS: PCP Psychiatry & Neurology Neurology; Visit Provider Psychiatry & Neurology Neurology
DX: G35 Multiple sclerosis (principal); Z98.1 Arthrodesis status; M47.892 Other spondylosis, cervical region
CPT/HCPCS: 70553; 72156; A9577

== ENCOUNTER 2024-06-07 12:04 | Outpatient (CLI) | payer MEDICARE, SELFPAY ==
--- NOTE | ~2024-06-07 | US_ITS ---
US arterial ankle brachial ind INDICATION: Erythematous condition. TECHNIQUE: Segmental pressures and plethysmographic and Doppler waveforms of the brachial and lower e xtremity arteries were obtained. COMPARISON: None. FINDINGS: Right and left brachial artery pressures of 150 mm Hg and 142 mm Hg, respectively, are concordant (no rmal difference <= 30 mmHg). The right ankle-brachial index (RIP) is 1.23 (normal >= 0.9-1.0). The right great toe-brachial index (TBI) is 0.79 (normal >= 0.60). The left RIP is 1.13. The left TBI is 0.78. IMPRESSION: 1. Normal ankle-brachial indices. Reviewed, dictated and finalized at location B.
== END 2024-06-07 12:05 | disposition home or self-care (01) ==
PROVIDERS: PCP Internal Medicine; Visit Provider Internal Medicine
DX: I79.8 Other disorders of arteries, arterioles and capillaries in diseases classified elsewhere (principal); L53.9 Erythematous condition, unspecified
CPT/HCPCS: 93922

== ENCOUNTER 2024-06-11 10:28 | Outpatient (CLI) | payer MEDICARE, SELFPAY ==
--- NOTE | ~2024-06-11 | MM_ITS ---
EXAMINATION: MM screening [facility] BI w eda HISTORY: Screening TECHNIQUE: Craniocaudal and mediolateral oblique 3-D tomosynthesis images were obtained and synthetic 2-D images were generated. CAD analysis was submitted and interpreted. COMPARISON: Comparison to multiple prior studies sequentially, with oldest reviewed study dated 06/14. BREAST PARENCHYMAL COMPOSITION: Not dense: There are scattered areas of fibroglandular density. FINDINGS: There is no evidence of suspicious mass, calcification, or architectural distortion to sugg est malignancy in either breast. There has been no suspicious interval change. IMPRESSION: 1. No mammographic evidence of malignancy. 2. Recommend routine screening mammography in one year. BI-RADS Category 1: Negative Reviewed, dictated and finalized at location B.
== END 2024-06-11 10:29 ==
PROVIDERS: PCP Psychiatry & Neurology Neurology; Visit Provider Internal Medicine
DX: Z12.31 Encounter for screening mammogram for malignant neoplasm of breast (principal)
CPT/HCPCS: 77063; 77067

== ENCOUNTER → 2024-07-17 15:24 | Outpatient (REF) | payer MEDICARE, SELFPAY | LOC: ANHLAB 15:24 | PROVIDERS: PCP Psychiatry & Neurology Neurology; Visit Provider Plastic Surgery | DX: C44.622 Squamous cell carcinoma of skin of right upper limb, including shoulder (principal) | CPT/HCPCS: 88305 ==

== ENCOUNTER → 2025-02-11 15:28 | Outpatient (REF) | payer MEDICARE, SELFPAY | LOC: ANHLAB 15:28 | PROVIDERS: PCP Psychiatry & Neurology Neurology; Visit Provider Plastic Surgery | DX: L90.5 Scar conditions and fibrosis of skin (principal); L57.8 Other skin changes due to chronic exposure to nonionizing radiation | CPT/HCPCS: 88305 ==

== ENCOUNTER 2025-06-14 10:08 | Outpatient (CLI) | payer MEDICARE, SELFPAY ==
--- NOTE | ~2025-06-14 | MM_ITS ---
EXAMINATION: MM screening [facility] BI w eda HISTORY: Screening mammogram TECHNIQUE: Craniocaudal and mediolateral oblique 3-D tomosynthesis images were obtained and synthetic 2-D images were generated. CAD analysis was submitted and interpreted. COMPARISON: 06/11/2024, 06/01/2023, 04/23/2021 BREAST PARENCHYMAL COMPOSITION:Not Dense. There are scattered areas of fibroglandular density. FINDINGS: No suspicious mass, calcification, or architectural distortion are identified in either breast to suggest malignancy. There has been no suspicious interval change. IMPRESSION: No mammographic evidence of malignancy. Recommend routine screening mammography in one year. BI-RADS Category 1: Negative Reviewed, dictated and finalized at location .
== END 2025-06-14 10:09 | disposition home or self-care (01) ==
PROVIDERS: PCP Psychiatry & Neurology Neurology; Visit Provider Internal Medicine
DX: Z12.31 Encounter for screening mammogram for malignant neoplasm of breast (principal)
CPT/HCPCS: 77063; 77067